=== PATIENT | female | born 1975 | race American Indian/Alaskan Native ===

== ENCOUNTER 2020-10-31 13:34 | Emergency (ER) | payer MEDICAID ==
[2020-10-31 14:09] VITALS: BP 148/92
--- NOTE | 2020-10-31 14:26 | Emergency Department Report ---
Chief Complaint: Fever Stated Complaint: HIGH FEVER/COUGHING/BODY ACHES/CHEST PAIN - HPI History of Present Illness: 45-year-old -[place] female presents to the emergency room for fever between 100-1 02 with intermittent coughing and body aches of headache. Patient has not taken anything but they "just to get here. Patient denies any shortness of breath. 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 Patient states she is able to drink and eat without difficulties. - Exam Vital Signs: Vital Signs 10/31/20 14:08 Temperature 100.5 F H Pulse Rate 104 H Respiratory 18 Rate Blood Pressure 148/92 O2 Sat by Pulse 98 Oximetry Physical Exam: Gen: alert oriented NAD Cardic: regular rate and rhythm no murmurs appreciated Resp: Clear to auscultation bilateral no wheezing no rales or rhonchi. Abdomen: Soft nontender nondistended normal bowel sounds. Mini neuro: strengh 4/5 all extrimities, Alert and oriented time 3 Crainal nerve II-IIX intact MSE screening note: Focused history and physical exam performed. Due to findings the following was ordered: 45-year-old -[place] female presents to the emergency room for fever between 100-1 02 with intermittent coughing and body aches of headache. Patient has not taken anything but they "just to get here. Patient denies any shortness of breath. 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 Patient states she is able to drink and eat without difficulties. Information given for Covid. Instructed patient to increase her fluid intake take Tylenol or ibuprofen. Return back to the emergency room if she has any worsening symptoms. ED Disposition for MSE Disposition: MED SCREENING EXAM-LEFT Is pt being admited?: No Does the pt Need Aspirin: No Condition: Stable Instructions: Viral Illness, Adult Additional Instructions: Your symptoms appear most consistent with a nonspecific viral syndrome. However, given this current pandemic, COVID-19 is in the differential of possibilities. Despite your previous negative COVID-19 test, I do recommend repeat outpatient Covid 19 testing. In the meantime, isolate/quarantine yourself and stay away from anyone who is elderly, immunocompromised or chronically ill. You can use ibuprofen every 6-8 hours and Tylenol every 4-8 hours, using the dosing on the back of the bottle, as needed for any fever or body aches. Return to the emergency department with any worsening of your symptoms, development of chest pain or shortness of breath, or with any acute distress. Referrals: [facility] [Provider Group] - 3-5 Days Forms: Work/School Release Form(ED)
== END 2020-10-31 14:30 | disposition left against medical advice (07) ==
LOC: ED 13:34
DX: R05 Cough (principal); R50.9 Fever, unspecified; R51.9 Headache, unspecified; Z53.21 Procedure and treatment not carried out due to patient leaving prior to being seen by health care provider

== ENCOUNTER 2021-01-11 17:29 | Emergency (ER) | payer MEDICAID, OTHER ==
[2021-01-11] MEDS ORDERED: dexAMETHasone 20 MG/5 ML VIAL IM ONE (17:43)
[2021-01-11] MEDS ORDERED: METOCLOPRAMIDE 10 MG TAB PO ONE (17:43)
[2021-01-11] MEDS ORDERED: ACETAMINOPHEN 500 MG TAB PO ONE (17:43)
[2021-01-11] MEDS ORDERED: diphenhydrAMINE 25 MG CAP PO ONE (17:43)
--- NOTE | 2021-01-11 17:51 | Emergency Department Report ---
ED General Adult HPI - General Chief complaint: Head Injury Stated complaint: HEAD PAIN Time Seen by Provider: 01/11/21 17:47 Source: patient Mode of arrival: Ambulatory Limitations: No Limitations - History of Present Illness Initial comments: Patient is a 45-year-old -[place]oc[place] female who presents for headache left parietal 05/28 x3 days. States wooden door fell off the hinges and striking her in the back of her head. Now with neck pain and headache pain described as sharp aching with sore neck muscles. Pain exacerbated by movement and activity. Pain is relieved by nothing tried. There is been no decreased vision, nausea vomiting, no dizziness or lightheadedness. No drainage from ears or nose. There is no abrasion, laceration or deformity noted. Patient is amatory with steady gait with no acute distress at this time. - Related Data Previous Rx's Medication Instructions Recorded Last Taken Type Diclofenac [Rocio Greenberg] 1 tab PO Q12H #60 tablet 08/08/13 Unknown Rx hydrOXYzine HCL [Atarax] 25 mg PO Q6HR PRN #20 tablet 08/08/13 Unknown Rx Ibuprofen [Motrin] 800 mg PO Q8HR PRN #20 tablet 10/26/16 Unknown Rx Acetaminophen [Acetaminophen TAB] 1,000 mg PO Q6HR PRN #30 tablet 01/11/21 Unknown Rx Metoclopramide [Reglan] 10 mg PO Q6H PRN #30 tablet 01/11/21 Unknown Rx diphenhydrAMINE [Benadryl CAP] 25 mg PO Q6HR PRN #30 capsule 01/11/21 Unknown Rx Allergies Allergy/AdvReac Type Severity Reaction Status Date / Time No Known Allergies Allergy Unverified 08/08/13 19:43 ED Review of Systems ROS: Stated complaint: HEAD PAIN Other details as noted in HPI Constitutional: denies: chills, fever Eyes: denies: eye pain ENT: denies: ear pain, dental pain Respiratory: denies: cough, shortness of breath, wheezing Cardiovascular: denies: chest pain, palpitations Endocrine: no symptoms reported Gastrointestinal: denies: abdominal pain, nausea, vomiting, diarrhea Genitourinary: denies: urgency, dysuria, discharge Musculoskeletal: denies: back pain, joint swelling, arthralgia Skin: denies: rash, lesions Neurological: headache. denies: weakness, numbness, paresthesias, confusion, vertigo Psychiatric: denies: anxiety, depression Hematological/Lymphatic: denies: easy bleeding, easy bruising ED Past Medical Hx - Past Medical History Previous Medical History?: No - Surgical History Past Surgical History?: No - Social History Smoking Status: Never Smoker Substance Use Type: None - Medications Home Medications: Home Medications Medication Instructions Recorded Confirmed Last Taken Type Diclofenac Dr [Voltaren Dr] 1 tab PO Q12H #60 tablet 08/08/13 Unknown Rx hydrOXYzine HCL [Atarax] 25 mg PO Q6HR PRN #20 tablet 08/08/13 Unknown Rx Ibuprofen [Motrin] 800 mg PO Q8HR PRN #20 tablet 10/26/16 Unknown Rx Acetaminophen [Acetaminophen TAB] 1,000 mg PO Q6HR PRN #30 tablet 01/11/21 Unknown Rx Metoclopramide [Reglan] 10 mg PO Q6H PRN #30 tablet 01/11/21 Unknown Rx diphenhydrAMINE [Benadryl CAP] 25 mg PO Q6HR PRN #30 capsule 01/11/21 Unknown Rx ED Physical Exam - General Limitations: No Limitations General appearance: alert, in no apparent distress - Head Head exam: Present: normocephalic, normal inspection - Expanded Head Exam Expanded Head exam: Absent: laceration, abrasion, contusion, hematoma - Eye Eye exam: Present: normal appearance, PERRL, EOMI. Absent: conjunctival injection, nystagmus Pupils: Present: normal accommodation - ENT ENT exam: Present: mucous membranes moist - Neck Neck exam: Present: normal inspection, tenderness (left lateral neck muscle pain with deep palpation, no crepitus, no step off , rom intact and unrestricted to all clemons unrestricted. ), full ROM - Expanded Neck Exam Expanded Neck exam: Present: tenderness (as above ). Absent: midline deformity, anterior neck swelling, carotid bruit, tracheal deviation - Respiratory Respiratory exam: Present: normal lung sounds bilaterally. Absent: respiratory distress, wheezes - Cardiovascular Cardiovascular Exam: Present: regular rate, normal rhythm, normal heart sounds. Absent: systolic murmur, diastolic murmur, rubs, gallop - GI/Abdominal GI/Abdominal exam: Present: soft, normal bowel sounds. Absent: distended, tenderness - Rectal Rectal exam: Present: deferred - Extremities Exam Extremities exam: Present: normal inspection, full ROM. Absent: tenderness - Back Exam Back exam: Present: normal inspection, full ROM. Absent: tenderness, paraspinal tenderness, vertebral tenderness - Neurological Exam Neurological exam: Present: alert, oriented X3, CN II-XII intact, normal gait, reflexes normal. Absent: motor sensory deficit - Expanded Neurological Exam Expanded Patient oriented to: Present: person, place, time Speech: Present: fluid speech Cranial nerves: EOM's Intact: Normal, Gag Reflex: Normal, Tongue Deviation: Normal Motor strength exam: RUE: 5, LUE: 5, RLE: 5, LLE: 5 DTR: knee (R): 2+, knee (L): 2+ Best Eye Response (Jorge): (4) open spontaneously Best Motor Response ([place]): (6) obeys commands Best Verbal Response (Jorge): (5) oriented Jorge Total: 15 - Psychiatric Psychiatric exam: Present: normal affect, normal mood - Skin Skin exam: Present: warm, dry, intact, normal color. Absent: rash ED Medical Decision Making - Radiology Data Radiology results: report reviewed, image reviewed Ordering Physician: LEATHA FENG NP Date of Service: 01/11/21 Procedure(s): XR spine cervical 2-3V Accession Number(s): [id number] cc: LEATHA FENG NP Fluoro Time In Minutes: CERVICAL SPINE 4 VIEWS INDICATION / CLINICAL INFORMATION: neck pain s/p trauma. COMPARISON: None available. FINDINGS: No fracture, subluxation or other acute abnormality. Minimal degenerative change. Signer Name: Adam Almanzar MD Signed: 01/11/2021 6:16 PM Workstation Name: [id number] Transcribed By: TM Dictated By: Adam Almanzar MD Electronically Authenticated By: Adam Almanzar MD Signed Date/Time: 01/11/211815 DD/ 14 TD/TT: - Medical Decision Making X-ray C-spine normal no fracture no soft tissue abnormalities. Please symptoms are improved. Plan patient will be DC to home with prescriptions. Patient will follow-up with PCP in 2 to 3 days. Patient is currently alert, oriented x3, amatory with steady gait. Patient DC'd home with no acute distress at this time. Critical care attestation.: If time is entered above; I have spent that time in minutes in the direct care of this critically ill patient, excluding procedure time. ED Disposition Clinical Impression: Headache Qualifiers: Headache type: unspecified Headache chronicity pattern: acute headache Intractability: not intractable Qualified Code(s): R51.9 - Headache, unspecified Neck strain Qualifiers: Encounter type: initial encounter Qualified Code(s): S16.1XXA - Strain of muscle, fascia and tendon at neck level, initial encounter Disposition: TO HOME OR SELFCARE Is pt being admited?: No Does the pt Need Aspirin: No Condition: Stable Instructions: Cervical Strain and Sprain Rehab-SportsMed, Migraine Headache, [id number], Head Injury, Adult Prescriptions: Acetaminophen [Acetaminophen TAB] 1,000 mg PO Q6HR PRN #30 tablet PRN Reason: Headache diphenhydrAMINE [Benadryl CAP] 25 mg PO Q6HR PRN #30 capsule PRN Reason: Headache Metoclopramide [Reglan] 10 mg PO Q6H PRN #30 tablet PRN Reason: Headache Referrals: NATALIE TAI MD [Referring] - 3-5 Days CARMENCITA AVILA MD [Referring] - 3-5 Days Forms: Work/School Release Form(ED) Time of Disposition: 18:38
--- NOTE | 2021-01-11 18:20 | XRay Report ---
CERVICAL SPINE 4 VIEWS INDICATION / CLINICAL INFORMATION: neck pain s/p trauma. COMPARISON: None available. FINDINGS: No fracture, subluxation or other acute abnormality. Minimal degenerative change. Signer Name: Adam Almanzar MD Signed: 01/11/2021 6:16 PM Workstation Name: [id number]
[2021-01-11 20:33] VITALS: BP 146/75
== END 2021-01-11 20:35 | disposition home or self-care (01) ==
LOC: ED 17:29
DX: S16.1XXA Strain of muscle, fascia and tendon at neck level, initial encounter (principal); R51.9 Headache, unspecified; Z79.899 Other long term (current) drug therapy; X58.XXXA Exposure to other specified factors, initial encounter; Y93.89 Activity, other specified; Y92.89 Other specified places as the place of occurrence of the external cause; Y99.8 Other external cause status
CPT/HCPCS: 72040; 99283

== ENCOUNTER 2021-11-13 11:59 | Emergency (ER) | payer OTHER ==
[2021-11-13 14:55] LABS: Bilirubin,Urine NEG (Negative); Blood,Urine MOD (Negative); Color,Urine Amber (Yellow); Mucus,Urine 2+ /HPF; Protein,Urine <15 mg/dL mg/dL (Negative)
--- NOTE | 2021-11-13 15:54 | Emergency Department Report ---
ED Female HPI - General Chief complaint: Urogenital-Female Stated complaint: BLOOD IN URINE/BURING Time Seen by Provider: 11/13/21 15:35 Source: patient Mode of arrival: Ambulatory Limitations: No Limitations - History of Present Illness Initial comments: Patient is a 46-year-old female who presents emergency room complaints of dysuria that began a week ago. She reports for the last 3 days she has had hematuria. She states that she has been having some suprapubic abdominal pressure. She denies any back pain, fever, nausea, vomiting, diarrhea, chills. No past medical history. No allergies to medications. She reports that she has a Mirena IUD as control. She states her last menstrual cycle was 10/25/2021. - Related Data Previous Rx's Medication Instructions Recorded Last Taken Type Daisy Greenberg [Rocio Greenberg] 1 tab PO Q12H #60 tablet 08/08/13 Unknown Rx hydrOXYzine HCL [Atarax] 25 mg PO Q6HR PRN #20 tablet 08/08/13 Unknown Rx Ibuprofen [Motrin] 800 mg PO Q8HR PRN #20 tablet 10/26/16 Unknown Rx Acetaminophen [Acetaminophen TAB] 1,000 mg PO Q6HR PRN #30 tablet 01/11/21 Un known Rx Metoclopramide [Reglan] 10 mg PO Q6H PRN #30 tablet 01/11/21 Unknown Rx diphenhydrAMINE [Benadryl CAP] 25 mg PO Q6HR PRN #30 capsule 01/11/21 Unknown Rx Phenazopyridine [Pyridium] 100 mg PO TID 3 Days #6 tab 11/13/21 Unknown Rx cephALEXin [Keflex] 500 mg PO BID 7 Days #14 cap 11/13/21 Unknown Rx Allergies Allergy/AdvReac Type Severity Reaction Status Date / Time No Known Allergies Allergy Unverified 08/08/13 19:43 ED Review of Systems ROS: Stated complaint: BLOOD IN URINE/BURING Other details as noted in HPI Comment: All other systems reviewed and negative ED Past Medical Hx - Past Medical History Previous Medical History?: No - Surgical History Past Surgical History?: No - Social History Smoking Status: Never Smoker Substance Use Type: None - Medications Home Medications: Home Medications Medication Instructions Recorded Confirmed Last Taken Type Daisy Pop Dr] 1 tab PO Q12H #60 tablet 08/08/13 Unknown Rx hydrOXYzine HCL [Atarax] 25 mg PO Q6HR PRN #20 tablet 08/08/13 Unknown Rx Ibuprofen [Motrin] 800 mg PO Q8HR PRN #20 tablet 10/26/16 Unknown Rx Acetaminophen [Acetaminophen TAB] 1,000 mg PO Q6HR PRN #30 tablet 01/11/21 Unknown Rx Metoclopramide [Reglan] 10 mg PO Q6H PRN #30 tablet 01/11/21 Unknown Rx diphenhydrAMINE [Benadryl CAP] 25 mg PO Q6HR PRN #30 capsule 01/11/21 Unknown Rx Phenazopyridine [Pyridium] 100 mg PO TID 3 Days #6 tab 11/13/21 Unknown Rx cephALEXin [Keflex] 500 mg PO BID 7 Days #14 cap 11/13/21 Unknown Rx ED Physical Exam - General Limitations: No Limitations General appearance: alert, in no apparent distress - Head Head exam: Present: atraumatic, normocephalic - Eye Eye exam: Present: normal appearance - ENT ENT exam: Present: mucous membranes moist - Respiratory Respiratory exam: Present: normal lung sounds bilaterally. Absent: respiratory distress, wheezes, rales, rhonchi, stridor, chest wall tenderness, accessory muscle use, decreased breath sounds, prolonged expiratory - Cardiovascular Cardiovascular Exam: Present: regular rate, normal rhythm, normal heart sounds. Absent: systolic murmur, diastolic murmur, rubs, gallop - GI/Abdominal GI/Abdominal exam: Present: soft, normal bowel sounds. Absent: distended, tenderness, guarding, rebound, rigid - Back Exam Back exam: Absent: CVA tenderness (R), CVA tenderness (L) - Neurological Exam Neurological exam: Present: alert, oriented X3 - Psychiatric Psychiatric exam: Present: normal affect, normal mood - Skin Skin exam: Present: warm, dry, intact ED Course Vital Signs 11/13/21 13:43 Temperature 98.5 F Pulse Rate 70 Respiratory 16 Rate Blood Pressure 144/72 [Left] O2 Sat by Pulse 99 Oximetry ED Medical Decision Making - Medical Decision Making Patient is a 46-year-old female who presents emergency room complaints of dysuria that began a week ago. She reports for the last 3 days she has had hematuria. She states that she has been having some suprapubic abdominal pressure. She denies any back pain, fever, nausea, vomiting, diarrhea, chills. No past medical history. No allergies to medications. She reports that she has a Mirena IUD as control. She states her last menstrual cycle was 10/25/2021. Vitals are stable. No abdominal tenderness or CVA tenderness on exam. UA shows evidence of UTI. Patient given prescription for Keflex and Pyridium. Advised patient to please take medication as prescribed. Increase your water intake over the next several days. Follow-up with your primary care doctor for reexamination. Return to emergency room for any new or worsened symptoms. medication may turn your urine orange, this is normal. Critical care attestation.: If time is entered above; I have spent that time in minutes in the direct care of this critically ill patient, excluding procedure time. ED Disposition Clinical Impression: UTI (urinary tract infection) Qualifiers: Urinary tract infection type: acute cystitis Hematuria presence: without hem aturia Qualified Code(s): N30.00 - Acute cystitis without hematuria Disposition: HOME / SELF CARE / HOMELESS Is pt being admited?: No Does the pt Need Aspirin: No Condition: Stable Instructions: Urinary Tract Infection, Adult Additional Instructions: please take medication as prescribed. Increase your water intake over the next several days. Follow-up with your primary care doctor for reexamination. Return to emergency room for any new or worsened symptoms. medication may turn your urine orange, this is normal. Prescriptions: cephALEXin [Keflex] 500 mg PO BID 7 Days #14 cap Phenazopyridine [Pyridium] 100 mg PO TID 3 Days #6 tab Referrals: ANI DAUGHERTY MD [Staff Physician] - 3-5 Days [facility] [Provider Group] - 3-5 Days Time of Disposition: 15:53 Print Language: ZAMBIAN
[2021-11-13 16:13] VITALS: BP 121/75
== END 2021-11-13 19:11 | disposition home or self-care (01) ==
LOC: ED 11:59
DX: N39.0 Urinary tract infection, site not specified (principal); R31.9 Hematuria, unspecified
CPT/HCPCS: 81001; 87086; 99283